=== PATIENT | female | born 1980 ===

== ENCOUNTER 2017-10-27 12:49 | Emergency (ER) | payer OTHER ==
[2017-10-27 12:55] VITALS: TEMP 98.6; O2SAT 100
--- NOTE | 2017-10-27 14:32 | ED PDOC ---
HPI: Abdomen Time Seen by Provider: 10/27/17 14:31 Chief Complaint (Nursing): Abdominal Pain Chief Complaint (Provider): abd pain History Per: Patient Additional Complaint(s): 37-year-old female with history of hypertension presents to emergency department with right upper abdominal pain ongoing for 1 month. Patient states pain is worse after meals and is associated with nausea. She denies vomiting, fever or chills. Pain worsened overnight prompting ED visit today. Patient rates current pain as a 6 out of 10. PMD: Dr. eMghann Vázquez Past Medical History Reviewed: Historical Data, Nursing Documentation, Vital Signs Vital Signs: Last Vital Signs Temp 98.6 F 10/27/17 12:53 Pulse 88 10/27/17 12:53 Resp 16 10/27/17 12:53 BP 144/87 10/27/17 12:53 Pulse Ox 100 10/27/17 17:42 - Medical History PMH: Asthma, HTN - Surgical History Surgical History: (x 3) Other surgeries: tubal ligation - Family History Family History: States: Hypertension - Living Arrangements Living Arrangements: With Family - Social History Current smoker - smoking cessation education provided: No Alcohol: None Drugs: Denies - Home Medications Home Medications: Ambulatory Orders Medication Instructions Recorded Albuterol HFA [Ventolin HFA 90 2 puff IH Q4H #1 puff 04/28/15 mcg/actuation (8 g)] Amoxicillin/Clavulanate Pota 1 tab PO BID 04/28/15 [Augmentin 875 mg-125 mg] Budesonide/Formoterol Fumarate 1 aer IH BID 04/28/15 [Symbicort] Codeine Phos/Phenyleph HCl/P 5 ml PO Q6H #100 syr 04/28/15 [Phenergan Vc W/Codeine 120 ml] Methylprednisolone [Medrol Dose 4 mg PO DAILY #21 mg 04/28/15 Pack (21 tabs)] Promethazine [Phenergan Syrup] 6.25 mg PO Q6H 04/28/15 Ibuprofen [Motrin Tab] 800 mg PO Q8 PRN #20 tab 10/27/17 Ondansetron [Zofran Odt] 4 mg PO ASDIR PRN #10 odt 10/27/17 - Allergies Allergies/Adverse Reactions: Allergies Allergy/AdvReac Type Severity Reaction Status Date / Time No Known Allergies Allergy Verified 04/28/15 17:33 Review of Systems ROS Statement: Except As Marked, All Systems Reviewed And Found Negative Constitutional: Negative for: Fever, Chills Cardiovascular: Negative for: Chest Pain Respiratory: Negative for: Cough Gastrointestinal: Positive for: Nausea, Abdominal Pain. Negative for: Vomiting , Diarrhea Genitourinary Female: Negative for: Dysuria, Vaginal Bleeding Physical Exam - Reviewed Nursing Documentation Reviewed: Yes Vital Signs Reviewed: Yes - Physical Exam Appears: Positive for: Well, Non-toxic, No Acute Distress Skin: Negative for: Rash Eye Exam: Positive for: Normal appearance Cardiovascular/Chest: Positive for: Regular Rate, Rhythm Respiratory: Positive for: Normal Breath Sounds. Negative for: Respiratory Distress Gastrointestinal/Abdominal: Positive for: Other (Morbidly obese abdomen with tenderness to right upper quadrant, no rebound or guarding) Back: Positive for: L CVA Tenderness, R CVA Tenderness Extremity: Positive for: Normal ROM Neurologic/Psych: Positive for: Alert, Oriented - Laboratory Results Result Diagrams: 10/27/17 15:55 10/27/17 15:55 Urine POC: Negative Urine dip results: Negative for: Leukocyte Esterase, Blood, Nitrate, Ketones, Glucose, Bilirubin, Protein - ECG O2 Sat by Pulse Oximetry: 100 Pulse Ox Interpretation: Normal - Other Rad GB US X-Ray: Read By Radiologist X-Ray Interpretation: see below Medical Decision Making Medical Decision Makin37 year old with abd pain and nausea Plan: Urine dip and preg CBC CMP Lipase GB US PO motrin US: HISTORY: RUQ pain, nausea COMPARISON: LIVER: Measures 17.9 cm in length. Increased echogenicity of the liver parenchyma. No mass. No intrahepatic bile duct dilatation. GALLBLADDER: Cholelithiasis identified within a distended gallbladder. No sonographic Menchaca' s sign, mural thickening or pericholecystic fluid collection appreciated. COMMON BILE DUCT: Measures 4.0 mm. No stones. No dilatation. PANCREAS: Unremarkable as visualized. No mass. No ductal dilatation. RIGHT KIDNEY: Measures 11.4 cm in length. Normal echogenicity. No calculus, mass , or hydronephrosis. AORTA: No aneurysmal dilatation. IVC: Unremarkable. OTHER FINDINGS: None. IMPRESSION: Hepatic steatosis seen mildly. Cholelithiasis. Patient feels better after meds were given. She is aware of all diagnostic test results, all questions answered. Patient was referred to clinic for follow up. Prescriptions given for Motrin and Zofran. Patient also aware she can return to emergency department any time if acutely worse. Disposition - Clinical Impression Clinical Impression: Gallstones - Patient ED Disposition Is Patient to be Admitted: No Counseled Patient/Family Regarding: Studies Performed, Diagnosis, Need For Followup - Disposition Referrals: [facility] [Outside] Disposition: Routine/Home Disposition Time: 18:22 Condition: STABLE Additional Instructions: Take prescription medications as directed. Follow dietary instructions. Follow- up with clinic for further evaluation. Return any time if acutely worse. Prescriptions: Ibuprofen [Motrin Tab] 800 mg PO Q8 PRN #20 tab PRN Reason: Pain, Moderate (4-7) Ondansetron [Zofran Odt] 4 mg PO ASDIR PRN #10 odt PRN Reason: Nausea/Vomiting Instructions: Gallstones (DC) Forms: [employer] (Tajik) Print Language: TAJIK Results - Lab Results Lab Results: 10/27/17 10/27/17 15:55 15:55 WBC 10.1 RBC 4.83 Hgb 12.4 Hct 37.5 MCV 77.6 L MCH 25.6 L MCHC 33.0 RDW 16.4 H Plt Count 306 MPV 9.0 Neut % (Auto) 60.6 Lymph % (Auto) 30.6 Camp % (Auto) 6.6 Eos % (Auto) 1.6 Baso % (Auto) 0.6 Neut # (Auto) 6.1 Lymph # (Auto) 3.1 Camp # (Auto) 0.7 Eos # (Auto) 0.2 Baso # (Auto) 0.1 Sodium 142 Potassium 3.6 Chloride 103 Carbon Dioxide 25 Anion Gap 18 BUN 18 H Creatinine 0.5 L Est GFR ( Amer) > 60 Est GFR (Non-Af Amer) > 60 Random Glucose 87 Calcium 9.2 Total Bilirubin 0.6 AST 40 H ALT 62 H D Alkaline Phosphatase 71 Total Protein 7.6 Albumin 4.3 Globulin 3.4 Albumin/Globulin Ratio 1.3 Lipase 114
[2017-10-27 16:11] LABS: ALB/GLOB RATIO 1.3 (1.0-2.1); ALBUMIN 4.3 g/dL (3.5-5.0); ALT/SGPT 62 U/L (9-52); AST/SGOT 40 U/L (14-36); BLOOD UREA NITROGEN 18 mg/dl (7-17); CALCIUM 9.2 mg/dL (8.4-10.2); GFR AFRICAN-AMERICAN > 60; GFR NON-AFRICAN AMERICAN > 60; LIPASE 114 U/L (23-300)
[2017-10-27 16:16] LABS: BASO # 0.1 K/uL (0.0-0.2); BASO % 0.6 % (0.0-2.0); EOS # 0.2 K/uL (0.0-0.7); EOS % 1.6 % (0.0-4.0); HEMOGLOBIN 12.4 g/dL (12.0-16.0); LYMPH # 3.1 K/uL (1.0-4.3); LYMPH % 30.6 % (20.0-40.0); MEAN CELL VOLUME 77.6 fl (81.0-99.0); MEAN CORPUSCULAR HEMOGLOBIN 25.6 pg (27.0-31.0); MONO # 0.7 K/uL (0.0-0.8); MONO % 6.6 % (0.0-10.0); NEUT # 6.1 K/uL (1.8-7.0); NEUT % 60.6 % (50.0-75.0); NRBC % 0.1 % (0.0-0.0); RBC 4.83 Mil/uL (3.80-5.20); RED CELL DISTRIBUTION WIDTH 16.4 % (11.5-14.5); WHITE BLOOD COUNT 10.1 K/uL (4.8-10.8)
--- NOTE | 2017-10-27 17:25 | US ---
HISTORY: RUQ pain, nausea COMPARISON: None. TECHNIQUE: Sonographic evaluation of the right upper quadrant of the abdomen. FINDINGS: LIVER: Measures 17.9 cm in length. Increased echogenicity of the liver parenchyma. No mass. No intrahepatic bile duct dilatation. GALLBLADDER: Cholelithiasis identified within a distended gallbladder. No sonographic Menchaca's sign, mural thickening or pericholecystic fluid collection appreciated. COMMON BILE DUCT: Measures 4.0 mm. No stones. No dilatation. PANCREAS: Unremarkable as visualized. No mass. No ductal dilatation. RIGHT KIDNEY: Measures 11.4 cm in length. Normal echogenicity. No calculus, mass, or hydronephrosis. AORTA: No aneurysmal dilatation. IVC: Unremarkable. OTHER FINDINGS: None . IMPRESSION: Hepatic steatosis seen mildly. Cholelithiasis.
[2017-10-27 18:39] VITALS: BP 140/82; PULSE 82; RESP 18
== END 2017-10-27 18:33 | disposition home or self-care (01) ==
LOC: H.ER 12:49
DX: K80.20 Calculus of gallbladder without cholecystitis without obstruction (principal); I10 Essential (primary) hypertension; J45.909 Unspecified asthma, uncomplicated; K76.0 Fatty (change of) liver, not elsewhere classified

== ENCOUNTER 2018-10-01 09:30 | Emergency (ER) | payer SELFPAY ==
[2018-10-01 09:32] VITALS: BMI 42.0
[2018-10-01 09:34] VITALS: RESP 18
[2018-10-01 09:42] VITALS: O2SAT 98
--- NOTE | 2018-10-01 10:02 | ED PDOC ---
HPI: Abdomen Time Seen by Provider: 10/01/18 09:36 Chief Complaint (Nursing): Abdominal Pain History Per: Patient Onset/Duration Of Symptoms: Days (3) Current Symptoms Are (Timing): Still Present Severity: Mild Location Of Pain/Discomfort: RUQ Quality Of Discomfort: Unable To Describe Associated Symptoms: denies: Fever, Nausea, Vomiting, Diarrhea, Urinary Symptoms Exacerbating Factors: None Alleviating Factors: None Additional Complaint(s): RUQ abd pain x 3 days. Denies NVD. Denies urinary sxs. Denies fever. Dx'ed 1 year ago with gallstones. Past Medical History Vital Signs: Last Vital Signs Temp 97.9 F 10/01/18 09:32 Pulse 78 10/01/18 09:32 Resp 18 10/01/18 09:32 BP 124/79 10/01/18 09:32 Pulse Ox 98 10/01/18 09:38 - Medical History PMH: Asthma, HTN (takes lisinopril) Denies: Chronic Kidney Disease - Surgical History Surgical History: (x 3) - Family History Family History: States: Hypertension - Home Medications Home Medications: Ambulatory Orders Medication Instructions Recorded Albuterol HFA [Ventolin HFA 90 2 puff IH Q4H #1 puff 04/28/15 mcg/actuation (8 g)] Amoxicillin/Clavulanate Pota 1 tab PO BID 04/28/15 [Augmentin 875 mg-125 mg] Budesonide/Formoterol Fumarate 1 aer IH BID 04/28/15 [Symbicort] Codeine Phos/Phenyleph HCl/P 5 ml PO Q6H #100 syr 04/28/15 [Phenergan Vc W/Codeine 120 ml] Methylprednisolone [Medrol Dose 4 mg PO DAILY #21 mg 04/28/15 Pack (21 tabs)] Promethazine [Phenergan Syrup] 6.25 mg PO Q6H 04/28/15 Ibuprofen [Motrin Tab] 800 mg PO Q8 PRN #20 tab 10/27/17 Ondansetron [Zofran Odt] 4 mg PO ASDIR PRN #10 odt 10/27/17 Famotidine [Pepcid] 20 mg PO Q12 #20 tab 10/01/18 - Allergies Allergies/Adverse Reactions: Allergies Allergy/AdvReac Type Severity Reaction Status Date / Time No Known Allergies Allergy Verified 04/28/15 17:33 Review of Systems ROS Statement: Except As Marked, All Systems Reviewed And Found Negative Gastrointestinal: Positive for: Abdominal Pain Physical Exam - Reviewed Nursing Documentation Reviewed: Yes Vital Signs Reviewed: Yes - Physical Exam Appears: Positive for: Non-toxic, No Acute Distress Head Exam: Positive for: ATRAUMATIC, NORMAL INSPECTION, NORMOCEPHALIC Skin: Positive for: Normal Color, Warm, DRY Eye Exam: Positive for: EOMI, Normal appearance, PERRL ENT: Positive for: Normal ENT Inspection Neck: Positive for: Normal, Painless ROM Cardiovascular/Chest: Positive for: Regular Rate, Rhythm Respiratory: Positive for: CNT, Normal Breath Sounds Gastrointestinal/Abdominal: Positive for: Soft, Tenderness (RUQ) Back: Positive for: Normal Inspection. Negative for: L CVA Tenderness, R CVA Tenderness Extremity: Positive for: Normal ROM Neurologic/Psych: Positive for: Alert, Oriented - Laboratory Results Result Diagrams: 10/01/18 10:15 10/01/18 10:15 - ECG O2 Sat by Pulse Oximetry: 98 Medical Decision Making Medical Decision Making: RUQ pain with h/o gallstones. Will r/o cholecystitis, repeat US and blood work US reveals gallstones with no evidence of cholcystitis. CBC, LFTs nl Abd pain better. Will dc home on pepcid and surgical f/u Disposition - Clinical Impression Clinical Impression: Gallstones - Patient ED Disposition Is Patient to be Admitted: No Counseled Patient/Family Regarding: Studies Performed, Diagnosis, Need For Followup, Rx Given - Disposition Referrals: Lloyd Tamayo MD [Staff Provider] - Disposition: Routine/Home Disposition Time: 12:14 Condition: FAIR Prescriptions: Famotidine [Pepcid] 20 mg PO Q12 #20 tab Instructions: Gallstones Forms: [employer] (Guamanian) Print Language: SYRIAC
[2018-10-01 10:22] LABS: BASO # 0.1 K/uL (0.0-0.2); BASO % 1.1 % (0.0-2.0); EOS # 0.2 K/uL (0.0-0.7); EOS % 2.5 % (0.0-4.0); HEMOGLOBIN 11.4 g/dL (12.0-16.0); LYMPH # 2.3 K/uL (1.0-4.3); LYMPH % 34.7 % (20.0-40.0); MEAN CELL VOLUME 76.4 fl (81.0-99.0); MEAN CORPUSCULAR HEMOGLOBIN 24.2 pg (27.0-31.0); MEAN CORPUSCULAR HGB CONC 31.6 g/dL (33.0-37.0); MEAN PLATELET VOLUME 8.4 fl (7.2-11.7); MONO # 0.4 K/uL (0.0-0.8); MONO % 6.1 % (0.0-10.0); NEUT # 3.7 K/uL (1.8-7.0); NEUT % 55.6 % (50.0-75.0); NRBC % 0.3 % (0.0-0.0); RBC 4.73 Mil/uL (3.80-5.20); RED CELL DISTRIBUTION WIDTH 17.1 % (11.5-14.5); WHITE BLOOD COUNT 6.6 K/uL (4.8-10.8)
[2018-10-01 10:35] LABS: ALB/GLOB RATIO 1.2 (1.0-2.1); ALBUMIN 4.1 g/dL (3.5-5.0); ALT/SGPT 31 U/L (9-52); AST/SGOT 31 U/L (14-36); BLOOD UREA NITROGEN 13 mg/dl (7-17); CALCIUM 8.6 mg/dL (8.4-10.2); GFR NON-AFRICAN AMERICAN > 60; LIPASE 69 U/L (23-300)
--- NOTE | 2018-10-01 11:18 | US ---
Date of service: 10/01/2018 HISTORY: RUQ pain COMPARISON: None. TECHNIQUE: Sonographic evaluation of the right upper quadrant of the abdomen. FINDINGS: LIVER: Measures 16.7 cm in length. Normal echogenicity of the liver parenchyma. No mass. No intrahepatic bile duct dilatation. GALLBLADDER: Gallstones are seen. No evidence of gallbladder wall thickening or pericholecystic fluid. COMMON BILE DUCT: Measures 4.6 mm. No stones. No dilatation. PANCREAS: Unremarkable as visualized. No mass. No ductal dilatation. RIGHT KIDNEY: Measures 12.1 x 6.9 x 5.1 cm in length. Normal echogenicity. No calculus, mass, or hydronephrosis. AORTA: No aneurysmal dilatation. IVC: Unremarkable. OTHER FINDINGS: None . IMPRESSION: Gallstones without ultrasound evidence of acute cholecystitis.
[2018-10-01] MEDS ORDERED: Potassium Chloride 20 mEq ER Tab PO ONE (11:59)
[2018-10-01 12:37] VITALS: BP 122/78; PULSE 68; TEMP 98
== END 2018-10-01 12:30 | disposition home or self-care (01) ==
LOC: H.ER 09:30
DX: K80.20 Calculus of gallbladder without cholecystitis without obstruction (principal); I10 Essential (primary) hypertension; J45.909 Unspecified asthma, uncomplicated

== ENCOUNTER 2018-11-13 08:45 | Day surgery (SDC) | payer OTHER ==
[2018-11-09 10:39] VITALS: BMI 43.9
[2018-11-13] MEDS ORDERED: Midazolam 2 MG/2 ML VIAL ONE (09:27)
[2018-11-13] MEDS ORDERED: Propofol 10 mg/ml Inj (20 ML) ONE (09:27)
[2018-11-13] MEDS ORDERED: Succinylcholine 200 mg/10 ml Inj IV ONE (09:27)
[2018-11-13] MEDS ORDERED: Lidocaine 4% (Laryng-O-Jet) Kit MM ONE (09:27)
[2018-11-13] MEDS ORDERED: Rocuronium 10 mg/ml (5 ml) ONE (09:27)
[2018-11-13] MEDS ORDERED: Lactated Ringer's 1,000 ML IV ONE ×3 (09:40→13:05)
[2018-11-13] MEDS ORDERED: Bupivacaine HCl 0.5% PF (30 ml) Inj ONE (09:44)
--- NOTE | 2018-11-13 09:54 | CP.SDSHP ---
Same Day Surgery H & P - History Proposed Procedure: Laparoscopic Cholcystectomy possible open Pre-Op Diagnosis: Symptomatic cholelithiasis - Previous Medical/Surgical History Cardiac: Hypertension Pulmonary: Asthma - Allergies Allergies: Allergies egg Allergy (Verified 11/13/18 09:41) SHORTNESS OF BREATH tomato Allergy (Verified 11/13/18 09:41) SHORTNESS OF BREATH - Physical Exam Vital Signs: Vital Signs 11/13/18 11/13/18 09:16 09:22 Temperature 98 F Pulse Rate 76 76 Respiratory 18 Rate Blood Pressure 108/67 O2 Sat by Pulse 99 Oximetry Mental Status: Alert & Oriented x3 Neuro: WNL Heart: WNL Lungs: WNL GI: WNL - {Optional Preform as Required} Abdomen: WNL - Impression Impression: 38F who presents for laparoscopic cholecystectomy Pt. Evaluated Today:Candidate for Anesthesia & Procedure: Yes - Date & Time Date: 11/13/18 Time: 09:56 Short Stay Discharge - Short Stay Discharge Admitting Diagnosis/Reason for Visit: K80.10 Disposition: HOME/ ROUTINE Referrals: Lloyd Tamayo MD [Staff Provider] - Follow-up: Follow up in [address] Tamayo Additional Instructions (Diet, Activity): No heavy lifting for 4 weeks May shower Keep area clean and dry No diet restrictions Follow up with Dr. Tamayo in [address] Tamayo's office for any issues No puede a levantar objetos pesados para semanas Puede ducharse Mantenga el nika limpia y seca No hay restricciones en la dieta. Seguimiento con el Dr. Tamayo en 1 semana. Llame a la oficina del Dr. Tamayo para cualquier problema. Progress Note/Discharge Note with Instructions: 38F s/p laparoscopic cholecystectomy Patient clear for DC when criteria met
[2018-11-13] MEDS ORDERED: ePHEDrine 50 mg/ml Inj ONE (10:46)
[2018-11-13] MEDS ORDERED: Neostigmine 1:1000 (1 mg/ml) Inj ONE (11:23)
[2018-11-13] MEDS ORDERED: Bupivacaine 0.5% Inj(30mL) IJ ONE (11:35)
--- NOTE | 2018-11-13 11:57 | PCM.SURG1 ---
Surgeon's Initial Post Op Note - Surgeon's Notes Surgeon: Dr. Tamayo Health Information Specialist: David Feldman PGY2 Type of Anesthesia: General Endo, Local Anesthesia Administered By: Dr. Reyes Pre-Operative Diagnosis: Symptomatic cholelithiasis Operative Findings: distended gallbladder, gallstones Post-Operative Diagnosis: Symptomatic Cholelithiasis Operation Performed: Laparoscopic Cholecystectomy Specimen/Specimens Removed: Gallbladder Estimated Blood Loss: EBL {In ML}: 10 Blood Products Given: N/A Drains Used: No Drains Post-Op Condition: Good Date of Surgery/Procedure: 11/13/18 Time of Surgery/Procedure: 11:57
[2018-11-13] MEDS ORDERED: Oxycodone/Acetaminophen 5/325 mg Tab PO PRN (11:58)
[2018-11-13] MEDS ORDERED: Lactated Ringer's 1,000 ML IV SCH (12:00)
[2018-11-13] MEDS: HYDROmorphone 0.5 mg/0.5 ml ISec IVP PRN ×3 (12:04→12:30)
[2018-11-13 15:06] VITALS: RESP 18
[2018-11-13] MEDS ORDERED: Oxycodone/Acetaminophen 5/325 mg Tab PO ONE (15:07)
[2018-11-13 16:03] VITALS: BP 113/59; PULSE 89; TEMP 97.2; O2SAT 97
--- NOTE | 2018-11-29 09:59 | OP ---
[id number] DATE: 11/13/2018 PREOPERATIVE DIAGNOSIS: Cholecystitis. POSTOPERATIVE DIAGNOSIS: Cholecystitis. OPERATION PERFORMED: Laparoscopic cholecystectomy. SURGEON: Lloyd Tamayo MD MANAGER MACHINE: Adonay Ronquillo MD TYPE OF ANESTHESIA: General anesthesia. OPERATIVE FINDINGS: Cystic duct, cystic artery, critical view obtained. ESTIMATED BLOOD LOSS: Minimal. The operative proceedings are as follows. PREPARATION AND PROCEDURE: The patient was taken to the operating room and placed supine on the operating room table. After induction of general anesthesia, the abdomen was prepped and draped in a standard surgical fashion. A Veress needle was inserted into the abdomen through the umbilicus. The abdomen was insufflated. Once sufficient CO2 was entered into the abdomen, a 10-mm trocar was placed through the umbilicus and a diagnostic laparoscopy was performed. The patient was then placed into the reversed Trendelenburg left side down position and the subxiphoid and two right-sided trocars were placed under direct vision. The gallbladder was grasped from the fundus and pulled upwards and the neck of the gallbladder was pulled outwards exposing the triangle of Calot. Blunt dissection with a [place] dissector was used to isolate the contents of the triangle of Calot. Once the contents of the triangle were isolated, the cystic duct was identified and seen to be entering the gallbladder. The cystic duct was then clipped and divided. The cystic artery was then encircled clipped and divided in a similar fashion. The gallbladder was then taken off the gallbladder fossa using the electrocautery. Once the gallbladder was off the gallbladder fossa, it was placed into an EndoCatch bag. The right upper quadrant was copiously irrigated. The gallbladder fossa was checked for bleeding. There was no evidence of bleeding. The irrigant was removed. The gallbladder was then removed via the umbilical trocar site. The trocars were then removed under direct vision. The umbilical trocar site was closed using #0 Vicryl. The skin incisions were closed using #4-0 Monocryl and the patient had 10 cc of 1% Marcaine infiltrated into all the wounds. The patient tolerated the procedure well. There were no complications. The sponge, instrument, and needle counts were correct at the end of the case. POSTOPERATIVE CONDITION: The patient was then awakened from general anesthesia, transported to the recovery room in satisfactory condition. Lloyd Tamayo MD
== END 2018-11-13 16:14 | disposition home or self-care (01) ==
LOC: H.OPSURG 08:45
PROVIDERS: ATTEND Surgery
DX: K80.10 Calculus of gallbladder with chronic cholecystitis without obstruction (principal); J45.909 Unspecified asthma, uncomplicated; I10 Essential (primary) hypertension; F41.9 Anxiety disorder, unspecified
CPT/HCPCS: 47562; 88304; J0330; J0690; J1170; J2001; J2250; J2704; J2710; J3010; J7030; J7120